=== PATIENT | male | born 1965 | race African-American/Black ===

== ENCOUNTER 2016-05-22 08:28 | Inpatient (IN) | payer MEDICARE ==
[~2016-05-22] VITALS: Ht 190.5 cm; Wt 122.8 kg
[~2016-05-22 08:28] MED LIST: ARIP882S IM; LITH300C3 PO; OMEP20 PO; QUET200T PO; VITAD1000 PO
[2016-05-22] MEDS ORDERED: LORazepam 2 MG TABLET PO ONE (09:00)
[2016-05-22] MEDS ORDERED: HALOPERIDOL 5 MG TABLET PO ONE (09:00)
[2016-05-22] MEDS ORDERED: DiphenhydrAMINE HCL 50 MG CAPSULE PO ONE (09:00)
[2016-05-22] MEDS ORDERED: LORazepam 2 MG/ML VIAL IM ONE ×2 (09:00→17:15)
[2016-05-22] MEDS ORDERED: DiphenhydrAMINE HCL 50 MG/ML VIAL IM ONE (09:00)
[2016-05-22] MEDS ORDERED: HALOPERIDOL LACTATE 5 MG/ML VIAL IM ONE ×2 (09:00→17:15)
[2016-05-22 09:11] LABS: BASOPHILS % (AUTO) 0.4 % (0.0-2.0); EOSINOPHILS % (AUTO) 0.7 % (1.0-6.0); HEMATOCRIT 39.4 % (41-53); HEMOGLOBIN 13.1 g/dL (13.5-17.5); LYMPHOCYTES # (AUTO) 1.8 K/uL (1.0-4.8); LYMPHOCYTES % (AUTO) 22.1 % (22.0-44.0); MEAN CORPUSCULAR HEMOGLOBIN 30.8 pg (26.0-34.0); MEAN CORPUSCULAR HGB CONC 33.2 G/dL (31.0-37.0); MEAN CORPUSCULAR VOLUME 93 fL (80-100); MONOCYTES # (AUTO) 0.5 K/uL (0.1-1.0); MONOCYTES % (AUTO) 6.1 % (2.0-9.0); NEUTROPHILS # (AUTO) 5.7 K/uL (1.8-7.7); NEUTROPHILS % (AUTO) 70.7 % (40.0-70.0); PLATELET COUNT (AUTO) 117 K/uL (150-450); RED BLOOD CELL COUNT(AUTO) 4.25 MIL/uL (4.50-5.90); RED CELL DISTRIBUTION WIDTH 15.2 % (11.5-14.5); WHITE BLOOD COUNT (AUTO) 8.1 K/uL (4.5-11.0)
[2016-05-22 09:26] LABS: LITHIUM 0.42 mmol/L (0.60-1.20)
[2016-05-22 09:34] LABS: ANION GAP 3 mmol/L (8-16); CALCIUM, TOTAL 8.9 mg/dL (8.8-10.5); CARBON DIOXIDE 32 mmol/L (22-29); CHLORIDE 102 mmol/L (98-107); CREATININE 1.34 mg/dL (0.60-1.30); GLOMERULAR FILTR. RATE CALC > 60 mL/min (>60); POTASSIUM 4.3 mmol/L (3.5-5.1); SODIUM SERUM 137 mmol/L (136-145); UREA NITROGEN, BLOOD 17 mg/dL (7-18)
[2016-05-22 09:40] LABS: ALANINE AMINOTRANSFERASE 34 U/L (12-78); ALBUMIN 3.8 g/dL (3.4-5.0); ASPARTATE AMINOTRANSFERASE 59 U/L (15-37); BILIRUBIN,TOTAL 0.7 mg/dL (0.1-1.0); TOTAL PROTEIN, SERUM 7.6 g/dL (6.4-8.2)
[2016-05-22] MEDS ORDERED: ACETAMINOPHEN 325 MG TABLET PO PRN (16:00)
[2016-05-22] MEDS ORDERED: MAGNESIUM HYDROXIDE SUSPENSION 30 ML UDCUP PO PRN (16:00)
[2016-05-22] MEDS ORDERED: MAG HYDROX/AL HYDROX/SIMETH ES 30 ML SUSPENSION UDCUP PO PRN (16:00)
[2016-05-22 16:09] VITALS: BP 111/62
[2016-05-22] MEDS ORDERED: INFLUENZA VIRUS VACCINE QVS 2016-17 (3YR+)/PF 60 MCG/0.5 ML SYRINGE IM ONE (16:30)
[2016-05-22] MEDS ORDERED: PNEUMOCOCCAL VACCINE POLYVALENT 0.5 ML VIAL [PPSV23] IM ONE (16:30)
[2016-05-22] MEDS ORDERED: LORazepam 2 MG/ML VIAL ONE (17:06)
[2016-05-22] MEDS ORDERED: HALOPERIDOL LACTATE 5 MG/ML VIAL ONE (17:07)
[2016-05-23] MEDS: HALOPERIDOL 5 MG TABLET PO PRN (06:25)
[2016-05-23] MEDS: LORazepam 2 MG TABLET PO PRN ×3 (06:25→16:08)
[2016-05-23 06:40] VITALS: BP 138/69
[2016-05-23 08:31] VITALS: BP 137/78
[2016-05-23] MEDS: NICOTINE 14 MG/24 HOUR PATCH TD SCH (09:00)
[2016-05-23] MEDS: OMEPRAZOLE 20 MG CAPSULE PO SCH (09:53)
[2016-05-23] MEDS: CHOLECALCIFEROL (VIT D3) 1,000 UNITS TABLET PO SCH (09:53)
[2016-05-23] MEDS: HALOPERIDOL 5 MG TABLET PO SCH ×2 (09:54→16:08)
[2016-05-23] MEDS: BENZTROPINE MESYLATE 0.5 MG TABLET PO SCH ×2 (09:54→16:08)
[2016-05-23] MEDS: BACITRACIN/POLYMYXIN B 15 GM OINTMENT TP SCH ×2 (09:54→16:07)
[2016-05-23] MEDS: BENZOCAINE/MENTHOL LOZENGE PO PRN (16:12)
[2016-05-23 16:26] VITALS: BP 135/85
[2016-05-24 01:14] VITALS: BP 134/76
[2016-05-24] MEDS: ZOLPIDEM TARTRATE 10 MG TABLET PO PRN ×2 (01:16→20:50)
[2016-05-24] MEDS: LORazepam 2 MG TABLET PO PRN ×4 (01:16→20:50)
[2016-05-24] MEDS: HALOPERIDOL 5 MG TABLET PO PRN (01:17)
[2016-05-24] MEDS: BENZOCAINE/MENTHOL LOZENGE PO PRN ×2 (03:59→12:44)
[2016-05-24 08:36] VITALS: BP 118/73
[2016-05-24] MEDS: NICOTINE 14 MG/24 HOUR PATCH TD SCH (09:00)
[2016-05-24] MEDS ORDERED: HALOPERIDOL DECANOATE 100 MG/ML VIAL IM ONE (09:00)
[2016-05-24] MEDS: CHOLECALCIFEROL (VIT D3) 1,000 UNITS TABLET PO SCH (10:04)
[2016-05-24] MEDS: OMEPRAZOLE 20 MG CAPSULE PO SCH (10:04)
[2016-05-24] MEDS: BACITRACIN/POLYMYXIN B 15 GM OINTMENT TP SCH ×2 (10:04→16:34)
[2016-05-24] MEDS: BENZTROPINE MESYLATE 0.5 MG TABLET PO SCH ×2 (10:04→16:34)
[2016-05-24] MEDS: HALOPERIDOL 10 MG TABLET PO SCH ×2 (10:04→16:34)
[2016-05-24 16:18] VITALS: BP 133/73
[2016-05-25 03:31] VITALS: BP 112/85
[2016-05-25 05:57] VITALS: BP 118/84
[2016-05-25] MEDS: LORazepam 2 MG TABLET PO PRN ×3 (06:31→20:36)
[2016-05-25] MEDS: HALOPERIDOL 5 MG TABLET PO PRN (06:31)
[2016-05-25 08:10] VITALS: BP 152/91
[2016-05-25] MEDS: NICOTINE 14 MG/24 HOUR PATCH TD SCH (09:00)
[2016-05-25] MEDS: CHOLECALCIFEROL (VIT D3) 1,000 UNITS TABLET PO SCH (09:50)
[2016-05-25] MEDS: OMEPRAZOLE 20 MG CAPSULE PO SCH (09:50)
[2016-05-25] MEDS: BENZTROPINE MESYLATE 0.5 MG TABLET PO SCH ×2 (09:50→16:26)
[2016-05-25] MEDS: HALOPERIDOL 10 MG TABLET PO SCH ×2 (09:50→16:26)
[2016-05-25] MEDS: BACITRACIN/POLYMYXIN B 15 GM OINTMENT TP SCH ×2 (09:50→16:26)
[2016-05-25 16:00] VITALS: BP 131/78
[2016-05-25] MEDS: ZOLPIDEM TARTRATE 10 MG TABLET PO PRN (20:36)
[2016-05-26 02:25] VITALS: BP 148/92
[2016-05-26] MEDS: LORazepam 2 MG TABLET PO PRN ×4 (03:41→20:34)
[2016-05-26] MEDS: HALOPERIDOL 5 MG TABLET PO PRN ×2 (03:41→08:12)
[2016-05-26 08:10] VITALS: BP 148/84
[2016-05-26] MEDS: OMEPRAZOLE 20 MG CAPSULE PO SCH (08:12)
[2016-05-26] MEDS: BENZTROPINE MESYLATE 0.5 MG TABLET PO SCH ×2 (08:12→16:34)
[2016-05-26] MEDS: HALOPERIDOL 10 MG TABLET PO SCH ×2 (08:12→16:34)
[2016-05-26] MEDS: CHOLECALCIFEROL (VIT D3) 1,000 UNITS TABLET PO SCH (08:12)
[2016-05-26] MEDS: NICOTINE 14 MG/24 HOUR PATCH TD SCH (08:13)
[2016-05-26] MEDS: BACITRACIN/POLYMYXIN B 15 GM OINTMENT TP SCH ×2 (08:15→16:34)
[2016-05-26 16:26] VITALS: BP 116/78
[2016-05-26] MEDS: LITHIUM CARBONATE 300 MG CAPSULE PO SCH (19:39)
[2016-05-26] MEDS: ZOLPIDEM TARTRATE 10 MG TABLET PO PRN (20:34)
[2016-05-27] MEDS ORDERED: BARIUM SULFATE 0.1% SUSPENSION 450 ML BOTTLE ONE ×2 (00:44→00:45)
[2016-05-27 04:10] VITALS: BP 112/70
[2016-05-27] MEDS: HALOPERIDOL 5 MG TABLET PO PRN (05:08)
[2016-05-27] MEDS: LORazepam 2 MG TABLET PO PRN ×3 (05:08→16:13)
[2016-05-27] MEDS: BENZOCAINE/MENTHOL LOZENGE PO PRN (05:09)
[2016-05-27 08:39] VITALS: BP 154/83
[2016-05-27] MEDS: NICOTINE 14 MG/24 HOUR PATCH TD SCH (09:00)
[2016-05-27] MEDS: BENZTROPINE MESYLATE 0.5 MG TABLET PO SCH ×2 (10:01→16:13)
[2016-05-27] MEDS: LITHIUM CARBONATE 300 MG CAPSULE PO SCH ×2 (10:01→16:13)
[2016-05-27] MEDS: OMEPRAZOLE 20 MG CAPSULE PO SCH (10:01)
[2016-05-27] MEDS: CHOLECALCIFEROL (VIT D3) 1,000 UNITS TABLET PO SCH (10:01)
[2016-05-27] MEDS: BACITRACIN/POLYMYXIN B 15 GM OINTMENT TP SCH ×2 (10:01→16:13)
[2016-05-27] MEDS: HALOPERIDOL 10 MG TABLET PO SCH ×2 (10:01→16:13)
[2016-05-27 16:12] VITALS: BP 143/84
[2016-05-28] MEDS: LORazepam 2 MG TABLET PO PRN ×4 (01:52→20:46)
[2016-05-28] MEDS: HALOPERIDOL 5 MG TABLET PO PRN (01:52)
[2016-05-28] MEDS: ZOLPIDEM TARTRATE 10 MG TABLET PO PRN ×2 (01:52→20:46)
[2016-05-28 05:12] VITALS: BP 134/83
[2016-05-28 08:07] LABS: BASOPHILS % (AUTO) 0.5 % (0.0-2.0); EOSINOPHILS % (AUTO) 4.9 % (1.0-6.0); HEMATOCRIT 42.6 % (41-53); LYMPHOCYTES # (AUTO) 3.2 K/uL (1.0-4.8); LYMPHOCYTES % (AUTO) 47.9 % (22.0-44.0); MEAN CORPUSCULAR HEMOGLOBIN 30.5 pg (26.0-34.0); MEAN CORPUSCULAR HGB CONC 32.7 G/dL (31.0-37.0); MEAN CORPUSCULAR VOLUME 93 fL (80-100); MONOCYTES # (AUTO) 0.6 K/uL (0.1-1.0); MONOCYTES % (AUTO) 8.3 % (2.0-9.0); NEUTROPHILS # (AUTO) 2.6 K/uL (1.8-7.7); NEUTROPHILS % (AUTO) 38.4 % (40.0-70.0); PLATELET COUNT (AUTO) 154 K/uL (150-450); RED BLOOD CELL COUNT(AUTO) 4.58 MIL/uL (4.50-5.90); RED CELL DISTRIBUTION WIDTH 15.2 % (11.5-14.5); WHITE BLOOD COUNT (AUTO) 6.7 K/uL (4.5-11.0)
[2016-05-28 08:10] VITALS: BP 109/80
[2016-05-28 08:29] LABS: LITHIUM < 0.20 mmol/L (0.60-1.20)
[2016-05-28 08:35] LABS: ALANINE AMINOTRANSFERASE 60 U/L (12-78); ALBUMIN 3.7 g/dL (3.4-5.0); ANION GAP 4 mmol/L (8-16); ASPARTATE AMINOTRANSFERASE 34 U/L (15-37); BILIRUBIN,TOTAL 0.4 mg/dL (0.1-1.0); CALCIUM, TOTAL 9.4 mg/dL (8.8-10.5); CARBON DIOXIDE 31 mmol/L (22-29); CHLORIDE 102 mmol/L (98-107); CREATININE 0.91 mg/dL (0.60-1.30); GLOMERULAR FILTR. RATE CALC > 60 mL/min (>60); POTASSIUM 4.3 mmol/L (3.5-5.1); SODIUM SERUM 137 mmol/L (136-145); THYROID STIMULATING HORMONE 3.18 uIU/mL (0.36-3.74); TOTAL PROTEIN, SERUM 7.6 g/dL (6.4-8.2); UREA NITROGEN, BLOOD 12 mg/dL (7-18)
[2016-05-28] MEDS: NICOTINE 14 MG/24 HOUR PATCH TD SCH (09:00)
[2016-05-28] MEDS: OMEPRAZOLE 20 MG CAPSULE PO SCH (09:30)
[2016-05-28] MEDS: CHOLECALCIFEROL (VIT D3) 1,000 UNITS TABLET PO SCH (09:30)
[2016-05-28] MEDS: HALOPERIDOL 10 MG TABLET PO SCH ×2 (09:30→16:42)
[2016-05-28] MEDS: BENZTROPINE MESYLATE 0.5 MG TABLET PO SCH ×2 (09:31→16:42)
[2016-05-28] MEDS: LITHIUM CARBONATE 300 MG CAPSULE PO SCH ×2 (09:31→16:42)
[2016-05-28] MEDS: BACITRACIN/POLYMYXIN B 15 GM OINTMENT TP SCH ×2 (09:31→16:43)
[2016-05-28 16:11] VITALS: BP 142/81
[2016-05-29 01:53] VITALS: BP 127/72
[2016-05-29] MEDS: HALOPERIDOL 5 MG TABLET PO PRN (03:55)
[2016-05-29] MEDS: LORazepam 2 MG TABLET PO PRN ×3 (04:14→16:47)
[2016-05-29 08:10] VITALS: BP 134/62
[2016-05-29] MEDS: NICOTINE 14 MG/24 HOUR PATCH TD SCH (09:00)
[2016-05-29] MEDS ORDERED: HALOPERIDOL DECANOATE 100 MG/ML VIAL IM SCH (09:00)
[2016-05-29] MEDS: BENZTROPINE MESYLATE 0.5 MG TABLET PO SCH ×2 (09:59→16:46)
[2016-05-29] MEDS: CHOLECALCIFEROL (VIT D3) 1,000 UNITS TABLET PO SCH (09:59)
[2016-05-29] MEDS: HALOPERIDOL 10 MG TABLET PO SCH ×2 (09:59→16:46)
[2016-05-29] MEDS: LITHIUM CARBONATE 300 MG TABLET PO SCH ×2 (09:59→16:46)
[2016-05-29] MEDS: OMEPRAZOLE 20 MG CAPSULE PO SCH (09:59)
[2016-05-29] MEDS: BACITRACIN/POLYMYXIN B 15 GM OINTMENT TP SCH ×2 (10:00→17:10)
[2016-05-29 16:29] VITALS: BP 115/70
[2016-05-30] MEDS: LORazepam 2 MG TABLET PO PRN ×3 (00:41→16:45)
[2016-05-30] MEDS: ZOLPIDEM TARTRATE 10 MG TABLET PO PRN (00:41)
[2016-05-30] MEDS: HALOPERIDOL 5 MG TABLET PO PRN ×2 (00:41→08:37)
[2016-05-30 04:20] VITALS: BP 123/70
[2016-05-30 08:10] VITALS: BP 112/67
[2016-05-30] MEDS: LITHIUM CARBONATE 600 MG CAPSULE PO SCH ×2 (08:37→16:45)
[2016-05-30] MEDS: BENZTROPINE MESYLATE 0.5 MG TABLET PO SCH ×2 (08:37→16:45)
[2016-05-30] MEDS: OMEPRAZOLE 20 MG CAPSULE PO SCH (08:37)
[2016-05-30] MEDS: HALOPERIDOL 10 MG TABLET PO SCH ×2 (08:37→16:45)
[2016-05-30] MEDS: CHOLECALCIFEROL (VIT D3) 1,000 UNITS TABLET PO SCH (08:38)
[2016-05-30] MEDS: NICOTINE 14 MG/24 HOUR PATCH TD SCH (08:46)
[2016-05-30] MEDS: BACITRACIN/POLYMYXIN B 15 GM OINTMENT TP SCH ×2 (08:46→17:03)
[2016-05-30 16:34] VITALS: BP 139/68
[2016-05-31 05:16] VITALS: BP 125/83
[2016-05-31] MEDS: LORazepam 2 MG TABLET PO PRN ×3 (05:42→16:29)
[2016-05-31 08:09] VITALS: BP 119/71
[2016-05-31] MEDS: NICOTINE 14 MG/24 HOUR PATCH TD SCH (09:00)
[2016-05-31] MEDS: LITHIUM CARBONATE 600 MG CAPSULE PO SCH ×2 (09:32→16:29)
[2016-05-31] MEDS: BACITRACIN/POLYMYXIN B 15 GM OINTMENT TP SCH ×2 (09:32→16:32)
[2016-05-31] MEDS: CHOLECALCIFEROL (VIT D3) 1,000 UNITS TABLET PO SCH (09:32)
[2016-05-31] MEDS: OMEPRAZOLE 20 MG CAPSULE PO SCH (09:32)
[2016-05-31] MEDS: BENZTROPINE MESYLATE 0.5 MG TABLET PO SCH ×2 (09:33→16:29)
[2016-05-31] MEDS: HALOPERIDOL 10 MG TABLET PO SCH ×2 (09:33→16:29)
[2016-05-31] MEDS: HALOPERIDOL 5 MG TABLET PO PRN (11:05)
[2016-05-31 17:01] VITALS: BP 120/75
[2016-06-01] MEDS: HALOPERIDOL 5 MG TABLET PO PRN ×2 (05:39→11:10)
[2016-06-01] MEDS: LORazepam 2 MG TABLET PO PRN ×3 (05:39→16:37)
[2016-06-01 08:04] LABS: BASOPHILS % (AUTO) 0.7 % (0.0-2.0); EOSINOPHILS % (AUTO) 7.1 % (1.0-6.0); HEMATOCRIT 41.5 % (41-53); HEMOGLOBIN 13.6 g/dL (13.5-17.5); LYMPHOCYTES # (AUTO) 2.4 K/uL (1.0-4.8); LYMPHOCYTES % (AUTO) 38.7 % (22.0-44.0); MEAN CORPUSCULAR HEMOGLOBIN 30.3 pg (26.0-34.0); MEAN CORPUSCULAR HGB CONC 32.7 G/dL (31.0-37.0); MEAN CORPUSCULAR VOLUME 93 fL (80-100); MONOCYTES # (AUTO) 0.5 K/uL (0.1-1.0); MONOCYTES % (AUTO) 7.5 % (2.0-9.0); NEUTROPHILS # (AUTO) 2.8 K/uL (1.8-7.7); PLATELET COUNT (AUTO) 172 K/uL (150-450); RED BLOOD CELL COUNT(AUTO) 4.49 MIL/uL (4.50-5.90); RED CELL DISTRIBUTION WIDTH 15.2 % (11.5-14.5); WHITE BLOOD COUNT (AUTO) 6.1 K/uL (4.5-11.0)
[2016-06-01 08:10] VITALS: BP 142/70
[2016-06-01 08:24] LABS: ALANINE AMINOTRANSFERASE 57 U/L (12-78); ALBUMIN 3.6 g/dL (3.4-5.0); ANION GAP 6 mmol/L (8-16); ASPARTATE AMINOTRANSFERASE 26 U/L (15-37); BILIRUBIN,TOTAL 0.3 mg/dL (0.1-1.0); CARBON DIOXIDE 28 mmol/L (22-29); CHLORIDE 104 mmol/L (98-107); CREATININE 0.85 mg/dL (0.60-1.30); GLOMERULAR FILTR. RATE CALC > 60 mL/min (>60); POTASSIUM 4.3 mmol/L (3.5-5.1); SODIUM SERUM 138 mmol/L (136-145); THYROID STIMULATING HORMONE 3.35 uIU/mL (0.36-3.74); TOTAL PROTEIN, SERUM 7.2 g/dL (6.4-8.2); UREA NITROGEN, BLOOD 17 mg/dL (7-18)
[2016-06-01 08:37] LABS: LITHIUM 0.55 mmol/L (0.60-1.20)
[2016-06-01] MEDS: NICOTINE 14 MG/24 HOUR PATCH TD SCH (09:00)
[2016-06-01] MEDS: OMEPRAZOLE 20 MG CAPSULE PO SCH (09:25)
[2016-06-01] MEDS: BACITRACIN/POLYMYXIN B 15 GM OINTMENT TP SCH ×2 (09:25→16:38)
[2016-06-01] MEDS: CHOLECALCIFEROL (VIT D3) 1,000 UNITS TABLET PO SCH (09:25)
[2016-06-01] MEDS: BENZTROPINE MESYLATE 0.5 MG TABLET PO SCH ×2 (09:26→16:37)
[2016-06-01] MEDS: HALOPERIDOL 10 MG TABLET PO SCH ×2 (09:26→16:37)
[2016-06-01] MEDS: LITHIUM CARBONATE 600 MG CAPSULE PO SCH ×2 (09:26→16:37)
[2016-06-01 16:10] VITALS: BP 148/75
[2016-06-02 06:43] VITALS: BP 135/79
[2016-06-02 08:10] VITALS: BP 115/69
[2016-06-02] MEDS: NICOTINE 14 MG/24 HOUR PATCH TD SCH (09:00)
[2016-06-02] MEDS: CHOLECALCIFEROL (VIT D3) 1,000 UNITS TABLET PO SCH (09:33)
[2016-06-02] MEDS: OMEPRAZOLE 20 MG CAPSULE PO SCH (09:33)
[2016-06-02] MEDS: HALOPERIDOL 10 MG TABLET PO SCH ×2 (09:33→16:51)
[2016-06-02] MEDS: LORazepam 2 MG TABLET PO PRN ×2 (09:33→16:51)
[2016-06-02] MEDS: LITHIUM CARBONATE 600 MG CAPSULE PO SCH ×2 (09:33→16:51)
[2016-06-02] MEDS: BACITRACIN/POLYMYXIN B 15 GM OINTMENT TP SCH ×2 (09:33→16:52)
[2016-06-02] MEDS: BENZTROPINE MESYLATE 0.5 MG TABLET PO SCH ×2 (09:33→16:51)
[2016-06-02 16:00] VITALS: BP 106/68
[2016-06-03 07:01] VITALS: BP 120/64
[2016-06-03 08:25] VITALS: BP 125/66
[2016-06-03] MEDS: NICOTINE 14 MG/24 HOUR PATCH TD SCH (08:54)
[2016-06-03] MEDS: BACITRACIN/POLYMYXIN B 15 GM OINTMENT TP SCH ×2 (08:55→16:50)
[2016-06-03] MEDS: LITHIUM CARBONATE 600 MG CAPSULE PO SCH ×2 (08:55→16:50)
[2016-06-03] MEDS: BENZTROPINE MESYLATE 0.5 MG TABLET PO SCH ×2 (08:55→16:50)
[2016-06-03] MEDS: CHOLECALCIFEROL (VIT D3) 1,000 UNITS TABLET PO SCH (08:55)
[2016-06-03] MEDS: LORazepam 2 MG TABLET PO PRN (08:55)
[2016-06-03] MEDS: HALOPERIDOL 10 MG TABLET PO SCH ×2 (08:55→16:50)
[2016-06-03] MEDS: OMEPRAZOLE 20 MG CAPSULE PO SCH (08:55)
[2016-06-03 16:10] VITALS: BP 110/65
[2016-06-04 08:11] VITALS: BP 105/60
[2016-06-04] MEDS: NICOTINE 14 MG/24 HOUR PATCH TD SCH (08:31)
[2016-06-04] MEDS: CHOLECALCIFEROL (VIT D3) 1,000 UNITS TABLET PO SCH (08:31)
[2016-06-04] MEDS: BACITRACIN/POLYMYXIN B 15 GM OINTMENT TP SCH (08:31)
[2016-06-04] MEDS: LITHIUM CARBONATE 600 MG CAPSULE PO SCH (08:31)
[2016-06-04] MEDS: OMEPRAZOLE 20 MG CAPSULE PO SCH (08:31)
[2016-06-04] MEDS: BENZTROPINE MESYLATE 0.5 MG TABLET PO SCH (08:31)
[2016-06-04] MEDS: HALOPERIDOL 10 MG TABLET PO SCH (08:31)
[2016-06-04] MEDS ORDERED: HALOD100I IM (11:33)
[2016-06-04] MEDS ORDERED: HALO10 PO (11:34)
[2016-06-04] MEDS ORDERED: LITH600 PO (11:35)
[2016-06-04] MEDS ORDERED: BENZ0.5T6 PO (11:35)
[2016-06-27] MEDS ORDERED: HALOPERIDOL DECANOATE 100 MG/ML VIAL IM SCH (09:00)
== END 2016-06-04 13:10 | disposition home or self-care (01) | DRG 885 ==
LOC: EMS 08:31 → B3A 14:13
PROVIDERS: ADMIT Psychiatry & Neurology Psychiatry; ATTEND Psychiatry & Neurology Psychiatry
DX: F25.0 Schizoaffective disorder, bipolar type (principal); D69.6 Thrombocytopenia, unspecified; E55.9 Vitamin D deficiency, unspecified; E66.9 Obesity, unspecified; F17.210 Nicotine dependence, cigarettes, uncomplicated; G47.00 Insomnia, unspecified; J44.9 Chronic obstructive pulmonary disease, unspecified; K21.9 Gastro-esophageal reflux disease without esophagitis; S80.212A Abrasion, left knee, initial encounter; S80.211A Abrasion, right knee, initial encounter; S60.512A Abrasion of left hand, initial encounter; S60.511A Abrasion of right hand, initial encounter; K59.00 Constipation, unspecified; Z59.0 Homelessness; Z78.9 Other specified health status; Z91.14 Patient's other noncompliance with medication regimen; Z71.6 Tobacco abuse counseling; Z79.899 Other long term (current) drug therapy; X58.XXXA Exposure to other specified factors, initial encounter; Y93.89 Activity, other specified; Y92.89 Other specified places as the place of occurrence of the external cause; Y99.8 Other external cause status; Z68.33 Body mass index [BMI] 33.0-33.9, adult; Z28.20 Immunization not carried out because of patient decision for unspecified reason
CPT/HCPCS: 84443; 99285; A0429; G0480; J1630; J1631; J2060

== ENCOUNTER 2024-01-14 11:05 | Emergency (ER) | payer MEDICARE, OTHER ==
[~2024-01-14] VITALS: Ht 190.5 cm; Wt 113.0 kg
[~2024-01-14 11:05] MED LIST changes: -ARIP882S IM; +BENZ0.5T52 PO; +CHOL100018 PO; +HALO10TA21 PO; +HALOD100I IM; -LITH300C3 PO; +LITH600C5 PO; -QUET200T PO; -VITAD1000 PO
[2024-01-14 11:33] VITALS: TEMP 98.5
[2024-01-14] MEDS: DiphenhydrAMINE HCL 50 MG/ML VIAL IM ONE (12:05)
[2024-01-14] MEDS: LORazepam 2 MG/ML VIAL IM ONE (12:05)
[2024-01-14] MEDS: HALOPERIDOL LACTATE 5 MG/ML VIAL IM ONE (12:05)
[2024-01-14 12:22] LABS: APPEARANCE,URINE CLEAR (CLEAR); BILIRUBIN,URINE NEGATIVE (NEGATIVE); COLOR,URINE LIGHT YELLOW (YELLOW); GLUCOSE, URINE (UA) NEGATIVE (NEGATIVE); KETONES,URINE NEGATIVE (NEGATIVE); LEUKOCYTE ESTERASE ,URINE NEGATIVE (NEGATIVE); NITRATE,URINE NEGATIVE (NEGATIVE); OCCULT BLOOD,URINE NEGATIVE (NEGATIVE); PROTEIN,URINE NEGATIVE (NEGATIVE); SPECIFIC GRAVITIY, URINE 1.011 (1.003-1.030); UROBILINOGEN,URINE <=1.0 mg/dL (<=1.0)
[2024-01-14 12:30] LABS: ALCOHOL, URINE DRUG SCREEN NEGATIVE (NEGATIVE); AMPHET/METH SCREEN,URINE NEGATIVE (NEGATIVE); BARBITURATE SCREEN, URINE NEGATIVE (NEGATIVE); BENZODIAZEPINES SCREEN,URINE NEGATIVE (NEGATIVE); CANNABINOID SCREEN,URINE NEGATIVE (NEGATIVE); COCAINE SCREEN,URINE NEGATIVE (NEGATIVE); METHADONE SCREEN, URINE NEGATIVE (NEGATIVE); OPIATE SCREEN,URINE NEGATIVE (NEGATIVE); PHENCYCLIDINE SCREEN,URINE NEGATIVE (NEGATIVE)
[2024-01-14 12:43] LABS: BASOPHILS % (AUTO) 0.7 % (0.0-2.0); HEMATOCRIT 39.1 % (41-53); HEMOGLOBIN 12.9 g/dL (13.5-17.5); LYMPHOCYTES % (AUTO) 32.3 % (22.0-44.0); MEAN CORPUSCULAR HEMOGLOBIN 29.3 pg (26.0-34.0); MEAN CORPUSCULAR HGB CONC 32.9 G/dL (31.0-37.0); MEAN CORPUSCULAR VOLUME 89 fL (80-100); MONOCYTES # (AUTO) 0.6 K/uL (0.1-1.0); MONOCYTES % (AUTO) 8.9 % (2.0-9.0); NEUTROPHILS # (AUTO) 3.2 K/uL (1.8-7.7); NEUTROPHILS % (AUTO) 52.1 % (40.0-70.0); PLATELET COUNT (AUTO) 150 K/uL (150-450); RED BLOOD CELL COUNT(AUTO) 4.39 MIL/uL (4.50-5.90); RED CELL DISTRIBUTION WIDTH 15.2 % (11.5-14.5); WHITE BLOOD COUNT (AUTO) 6.2 K/uL (4.5-11.0)
[2024-01-14 12:52] LABS: ANION GAP 11 mmol/L (8-16); CALCIUM, TOTAL 9.3 mg/dL (8.8-10.5); CARBON DIOXIDE 25 mmol/L (22-29); CHLORIDE 100 mmol/L (98-107); CREATININE 1.07 mg/dL (0.60-1.30); GLOMERULAR FILTR. RATE CALC > 60 mL/min (>60); GLUCOSE,RANDOM 105 mg/dL (70-110); POTASSIUM 3.9 mmol/L (3.5-5.1); SODIUM SERUM 136 mmol/L (136-145); UREA NITROGEN, BLOOD 17 mg/dL (7-18)
[2024-01-14 12:56] LABS: BACTERIA,URINE None Seen /HPF (None Seen); RBC,URINE None Seen /HPF (0-2); WBC,URINE None Seen /HPF (0-5)
[2024-01-14 13:01] LABS: TROPONIN I-HIGH SENSITIVITY 17 ng/L (<76)
[2024-01-14 13:03] LABS: ALCOHOL, BLOOD (SERUM) < 3 mg/dL (0-10)
[2024-01-14] MEDS: ChlorproMAZINE HCL 50 MG/2 ML AMP IM ONE (15:08)
[2024-01-14 15:40] VITALS: BP 129/83; PULSE 74; RESP 16; O2SAT 98
== END 2024-01-14 18:25 ==
LOC: EMS 11:05
DX: F25.9 Schizoaffective disorder, unspecified (principal); F69 Unspecified disorder of adult personality and behavior; F17.210 Nicotine dependence, cigarettes, uncomplicated; Z79.899 Other long term (current) drug therapy
CPT/HCPCS: 99285; 80048; 84484; 85025; 36415; 73030; 96372; 80307; 81001; G0480; J3230; J1200; J1630; J2060

== ENCOUNTER 2025-01-23 13:45 | Inpatient (IN) | payer MEDICARE, MEDICAID ==
[~2025-01-23] VITALS: Ht 190.5 cm; Wt 102.1 kg
[~2025-01-23 13:45] MED LIST changes: +OMEP-148 PO; -OMEP20 PO
[2025-01-23] MEDS ORDERED: LORazepam 2 MG/ML VIAL ONE (14:14)
[2025-01-23] MEDS: LORazepam 2 MG/ML VIAL IM ONE (14:26)
[2025-01-23 17:05] LABS: PLATELET COUNT (AUTO) 157 K/uL (150-450); RED BLOOD CELL COUNT(AUTO) 3.82 MIL/uL (4.50-5.90); RED CELL DISTRIBUTION WIDTH 15.4 % (11.5-14.5); WHITE BLOOD COUNT (AUTO) 5.7 K/uL (4.5-11.0)
[2025-01-23 17:11] LABS: CALCIUM, TOTAL 8.9 mg/dL (8.8-10.5); CREATININE 0.85 mg/dL (0.60-1.30); GLOMERULAR FILTR. RATE CALC > 60 mL/min (>60); GLUCOSE,RANDOM 80 mg/dL (70-110); SODIUM SERUM 140 mmol/L (136-145); UREA NITROGEN, BLOOD 12 mg/dL (7-18)
[2025-01-23 19:06] LABS: COVID AG,FIA SOURCE NASAL SWAB
[2025-01-23 19:32] LABS: SARS-COV2 (COVID) ANTIGEN,FIA Negative (Negative)
[2025-01-24] MEDS: ZOLPIDEM TARTRATE 10 MG TABLET PO PRN (00:14)
[2025-01-24 03:31] VITALS: O2SAT 96
[2025-01-24 08:34] VITALS: BP 111/72; PULSE 62; RESP 18; TEMP 98.2; O2SAT 100
[2025-01-24] MEDS ORDERED: LOPERAMIDE HCL 2 MG CAPSULE PO PRN (09:30)
[2025-01-24] MEDS ORDERED: BENZOCAINE/MENTHOL [CEPACOL] LOZENGE PO PRN (09:30)
[2025-01-24] MEDS ORDERED: DOCUSATE SODIUM 100 MG CAPSULE PO PRN (09:30)
[2025-01-24] MEDS ORDERED: OMEPRAZOLE 20 MG CAPSULE PO PRN (09:30)
[2025-01-24] MEDS ORDERED: ALBUTEROL SULFATE HFA 90 MCG/PUFF 8 GM INHALER IH PRN (09:30)
[2025-01-24] MEDS ORDERED: ONDANSETRON 4 MG TABLET PO PRN (09:30)
[2025-01-24] MEDS ORDERED: PETROLATUM,WHITE 28 GM JELLY TP PRN (09:30)
[2025-01-24] MEDS ORDERED: MAG HYDROX/ALUMINUM HYD/SIMETH ES 30 ML SUSPENSION UDCUP PO PRN (09:30)
[2025-01-24] MEDS ORDERED: BACITRACIN 28 GM OINTMENT TP PRN (09:30)
[2025-01-24] MEDS ORDERED: MAGNESIUM HYDROXIDE SUSPENSION 30 ML UDCUP PO PRN (09:30)
[2025-01-24] MEDS ORDERED: ACETAMINOPHEN 325 MG TABLET PO PRN (09:30)
[2025-01-24] MEDS: BENZTROPINE MESYLATE 0.5 MG TABLET PO SCH (17:21)
[2025-01-24] MEDS: LITHIUM CARBONATE 300 MG ER TABLET PO SCH (17:21)
[2025-01-24 20:12] VITALS: BP 107/74; PULSE 65; RESP 18; TEMP 98.4; O2SAT 100
[2025-01-25 02:07] LABS: HEPATITIS C AB (EIA) Non Reactive (Non Reactive)
[2025-01-25 08:37] VITALS: BP 102/59; PULSE 62; RESP 17; TEMP 98.1; O2SAT 97
[2025-01-25] MEDS: CHOLECALCIFEROL (VIT D3) 1,000 UNITS [25 MCG] TABLET PO SCH (08:46)
[2025-01-25 09:24] LABS: CHOL/HDL RATIO 3.1 (4.2-7.3); LDL CHOL (CALC.) 63.0 mg/dL (0-130); PHOSPHORUS 2.4 mg/dL (2.5-4.9)
[2025-01-25 09:39] LABS: APPEARANCE,URINE CLEAR (CLEAR); GLUCOSE, URINE (UA) NEGATIVE (NEGATIVE); LEUKOCYTE ESTERASE ,URINE NEGATIVE (NEGATIVE); NITRATE,URINE NEGATIVE (NEGATIVE); OCCULT BLOOD,URINE NEGATIVE (NEGATIVE); PH,URINE DRUG SCREEN 6.5 (5.0-8.0); SPECIFIC GRAVITIY, URINE 1.021 (1.003-1.030)
[2025-01-25 09:52] LABS: ALCOHOL, URINE DRUG SCREEN NEGATIVE (NEGATIVE); AMPHET/METH SCREEN,URINE NEGATIVE (NEGATIVE); BARBITURATE SCREEN, URINE NEGATIVE (NEGATIVE); CANNABINOID SCREEN,URINE NEGATIVE (NEGATIVE); COCAINE SCREEN,URINE NEGATIVE (NEGATIVE); METHADONE SCREEN, URINE NEGATIVE (NEGATIVE)
[2025-01-25] MEDS: DIVALPROEX SODIUM 125 MG DR CAPSULE PO SCH (21:44)
[2025-01-25] MEDS: MELATONIN 5 MG TABLET PO SCH (21:44)
[2025-01-25 22:07] VITALS: BP 112/74; PULSE 66; RESP 18; TEMP 98.2; O2SAT 100
[2025-01-26] MEDS: IBUPROFEN 600 MG TABLET PO PRN (03:25)
[2025-01-26 04:17] VITALS: BP 107/71; PULSE 60; RESP 18; O2SAT 100
[2025-01-26 08:34] VITALS: BP 113/75; PULSE 57; RESP 18; TEMP 98.1; O2SAT 100
[2025-01-26 09:23] LABS: PLATELET COUNT (AUTO) 177 K/uL (150-450); RED BLOOD CELL COUNT(AUTO) 4.16 MIL/uL (4.50-5.90); RED CELL DISTRIBUTION WIDTH 15.6 % (11.5-14.5); WHITE BLOOD COUNT (AUTO) 5.1 K/uL (4.5-11.0)
[2025-01-26] MEDS: LITHIUM CARBONATE 300 MG ER TABLET PO SCH (09:46)
[2025-01-26 20:20] VITALS: BP 108/78; PULSE 63; RESP 20; TEMP 98; O2SAT 97
[2025-01-27 08:55] VITALS: BP 114/66; PULSE 61; RESP 18; TEMP 98.3; O2SAT 95
[2025-01-27 20:35] VITALS: BP 106/67; PULSE 60; RESP 18; TEMP 98.2; O2SAT 98
[2025-01-28 08:18] VITALS: BP 116/74; PULSE 68; RESP 17; TEMP 98; O2SAT 97
[2025-01-28 22:14] VITALS: PULSE 69; RESP 17; TEMP 97.8
[2025-01-29 08:26] VITALS: BP 97/73; PULSE 61; RESP 18; TEMP 98.2; O2SAT 100
[2025-01-29 20:22] VITALS: BP 101/67; PULSE 63; RESP 18; TEMP 98.5; O2SAT 99
[2025-01-30 08:20] VITALS: BP 114/78; PULSE 60; RESP 17; TEMP 97.9; O2SAT 100
[2025-01-30 08:40] LABS: VALPROIC ACID 68.0 mcg/mL (50-100)
[2025-01-30 20:16] VITALS: BP 101/76; PULSE 66; RESP 18; TEMP 98.3; O2SAT 100
[2025-01-31 08:24] VITALS: BP 105/68; PULSE 65; RESP 17; TEMP 98.7; O2SAT 97
[2025-01-31 22:28] VITALS: BP 114/71; PULSE 67; RESP 18; TEMP 98.6; O2SAT 99
[2025-02-01 10:49] VITALS: BP 107/74; PULSE 63; RESP 18; TEMP 98.5; O2SAT 100
[2025-02-01 21:04] VITALS: BP 153/90; PULSE 76; RESP 17; TEMP 96.8; O2SAT 99
[2025-02-02 10:00] VITALS: BP 117/77; PULSE 70; RESP 19; TEMP 97.7; O2SAT 100
[2025-02-02 12:41] LABS: PLATELET COUNT (AUTO) 154 K/uL (150-450); RED BLOOD CELL COUNT(AUTO) 3.91 MIL/uL (4.50-5.90); RED CELL DISTRIBUTION WIDTH 16.7 % (11.5-14.5); WHITE BLOOD COUNT (AUTO) 5.7 K/uL (4.5-11.0)
[2025-02-02 20:59] VITALS: BP 125/81; PULSE 69; RESP 18; TEMP 98.1; O2SAT 97
[2025-02-03 08:43] VITALS: BP 106/75; PULSE 56; RESP 18; TEMP 97.5; O2SAT 100
[2025-02-03 22:37] VITALS: BP 124/80; PULSE 67; RESP 18; O2SAT 99
[2025-02-04 09:30] VITALS: BP 101/76; PULSE 63; RESP 18; TEMP 98.4; O2SAT 99
[2025-02-04 15:38] VITALS: BP 105/79; PULSE 65; RESP 19; TEMP 98.3; O2SAT 98
[2025-02-04 16:38] VITALS: BP 107/78; PULSE 66; RESP 18; TEMP 98.2; O2SAT 99
[2025-02-04 20:32] VITALS: BP 110/80; PULSE 70; RESP 19; TEMP 97.9; O2SAT 97
[2025-02-05] VITALS (8 sets, daily range): BP systolic 96–110; BP diastolic 64–78; PULSE 58–65; RESP 16–19; TEMP 97.6–98.3; O2SAT 96–100
[2025-02-06 05:50] VITALS: BP 110/72; PULSE 64; RESP 18; TEMP 98; O2SAT 98
[2025-02-06 06:53] VITALS: RESP 18
[2025-02-06 13:12] VITALS: BP 117/83; PULSE 55; RESP 18; TEMP 97.8; O2SAT 99
[2025-02-06 14:38] VITALS: BP 108/68; PULSE 61; RESP 18; TEMP 97.8; O2SAT 97
[2025-02-06 15:07] LABS: CLOZAPINE & NORCLOZAPINE 110 ng/mL; NORCLOZAPINE 22 ng/mL (Not Estab.)
[2025-02-06 15:42] VITALS: RESP 18
[2025-02-06 20:15] VITALS: BP 102/70; PULSE 67; RESP 18; TEMP 98; O2SAT 98
[2025-02-07 01:12] VITALS: BP 112/75; PULSE 74; RESP 18; TEMP 97.8; O2SAT 98
[2025-02-07 02:15] VITALS: RESP 18
[2025-02-07 08:15] VITALS: BP 105/65; PULSE 64; RESP 18; TEMP 96.8; O2SAT 98
[2025-02-07 22:00] VITALS: RESP 17
[2025-02-08 09:09] VITALS: BP 121/72; PULSE 55; RESP 17; TEMP 97.5; O2SAT 99
[2025-02-08 11:27] VITALS: BP 105/72; PULSE 85; RESP 16; TEMP 98.2; O2SAT 99
[2025-02-08] MEDS ORDERED: AMAN-24 PO (11:33)
[2025-02-08] MEDS ORDERED: MELA5TAB40 PO (11:33)
[2025-02-08] MEDS ORDERED: CHOL25TA4 PO (11:33)
[2025-02-08] MEDS ORDERED: LITH300T45 PO (11:33)
[2025-02-08] MEDS ORDERED: HALO100V36 IM (11:33)
[2025-02-08] MEDS ORDERED: DIVA125C20 PO (11:33)
[2025-02-08] MEDS ORDERED: CLOZ100T61 PO ×2 (11:33)
[2025-02-08] MEDS ORDERED: TRAZ-252 PO (11:33)
[2025-02-08 12:30] VITALS: RESP 16
== END 2025-02-08 20:34 | DRG 885 ==
LOC: EMS 13:45 → B2X 01-24 03:36 → 3EX 01-31 16:37
PROVIDERS: ADMIT Psychiatry & Neurology Psychiatry; ATTEND Psychiatry & Neurology Psychiatry
PROC: GZHZZZZ Group Psychotherapy (ICD-10-PCS; principal; 2025-01-25)
PROC: GZ58ZZZ Individual Psychotherapy, Cognitive-Behavioral (ICD-10-PCS; 2025-01-25)
PROC: GZ56ZZZ Individual Psychotherapy, Supportive (ICD-10-PCS; 2025-01-25)
DX: F25.0 Schizoaffective disorder, bipolar type (principal); Z20.822 Contact with and (suspected) exposure to COVID-19; E55.9 Vitamin D deficiency, unspecified; F41.9 Anxiety disorder, unspecified; G47.00 Insomnia, unspecified; I10 Essential (primary) hypertension; D50.9 Iron deficiency anemia, unspecified; E03.9 Hypothyroidism, unspecified; N32.81 Overactive bladder; Z78.1 Physical restraint status; Z79.899 Other long term (current) drug therapy
CPT/HCPCS: 80048; 80061; 80159; 80164; 80178; 80307; 81003; 83036; 83735; 84100; 84443; 85025; 86803; 87081; 87340; 96372; 97110; 97112; 97116; 97163; 97166; 97530; 97535; 99285; G0378; G0480; J1200; J1630; J1631; J2060